=== PATIENT | male | born 1955 | race Caucasian/White ===

== ENCOUNTER 2025-02-08 17:11 | Outpatient (CLI) | payer OTHER, MEDICARE, SELFPAY | END 2025-02-08 17:12 | disposition home or self-care (01) | PROVIDERS: Visit Provider Student in an Organized Health Care Education/Training Program | DX: S29.9XXA Unspecified injury of thorax, initial encounter (principal); V47.0XXA Car driver injured in collision with fixed or stationary object in nontraffic accident, initial encounter; Y92.410 Unspecified street and highway as the place of occurrence of the external cause | CPT/HCPCS: A0425; A0427 ==

== ENCOUNTER 2025-02-08 17:55 | Emergency (ER) | payer OTHER, SELFPAY ==
--- OUTSIDE RECORDS SUMMARY | 2004-03-18 19:00 | XMS_ITS | Continuity of Care Document ---
Author Organization [facility] Address [address] [address] [place] [address] Phone Care Team Providers Care Retail Client Solutions Consultant Name Role Phone Rank Philip WATTS Unavailable Unavailable Advance Directives Directive Yes / No Effective Date File Name No Information Encounters Encounter Description Practice Location Reason(s) For Visit Diagnoses Date Provider Providers Copied on Encounter [facility], [address] [address], [place], [place], [id number], [place] tel:[phone] [facility] No Information Rank MD Palacios. [address], [facility] [address], [place], [place], [id number], [place]. tel:[phone] Family History Family Member Type Diagnosis Age At Onset No Information Payers Payer name Insurance type Covered libertarian ID Yoa oscar(s) [facility] [id number] Social History Type Description Quantity Date Captured Comments Sex Male Smoking Status No Information Chief Complaint And Reason For Visit No Information Reason For Referral Reason For Referral No Information History Of Present Illness Encounter Date Complaint History Of Prese nt Illness No Information Functional Status Date Functional Assessmen t No Information Instructions Date Instruction Additional Infor mation No Information Assessments Type Assessment Date No Information Patient Care Teams Name Effective Dates (start - stop) Status Members No Information
--- OUTSIDE RECORDS SUMMARY | 2014-07-04 06:11 | XMS_ITS | Continuity of Care Document ---
Author Organization PRASANNA Diaz Address [address] [place] [address] Phone Care Team Providers Care Rn First Assistant Name Role Phone RN, RN Unavailable Unavailable Medications Medication Instructions Dosage Effective Dates (start - stop) Status Comments Flomax 0.4 mg 24 hr Cap take 1 capsule (0.4MG) by oral route every day 1/2 hour following the same meal each day 0.4 MG - Active clonazepam 2 mg Tab take 1 tablet (2MG) by ORAL route 3 times every day 1 in the morning 2 at night 2 MG - Active Calcium 500 + D 500 mg (1,250 mg)-200 unit Tab take 1 Tablet by Oral route every day 1 Tablet - Active Procedures Procedure Date RF Lumbar/Sacral Single Level 4 RF Lumbar/Sacral Addtl Level Inj Anes Facet Jt; Lumb/sac-1st Level Se Inj Anes Facet Jt; Lumb/sac-2nd Level Se Inj Anes Facet Jt; Lumb/sac-3rd Level Se Inj Anes Facet Jt; Lumb/sac-1st Level Au Inj Anes Facet Jt; Lumb/sac-2nd Level Au Inj Anes Facet Jt; Lumb/sac-3rd Level Au Inject Hip Arthrography Hip Joint Inject Hip Arthrography Hip Joint RF Lumbar/Sacral Single Level 4 RF Lumbar/Sacral Addtl Level Offic/outpt E&m Estab Mod-hi 2 14 Inj Anes Facet Jt; Lumb/sac-1st Level Md Inj Anes Facet Jt; Lumb/sac-2nd Level Ma Inj Anes Facet Jt; Lumb/sac-3rd Level Md Inj Anes Facet Jt; Lumb/sac-1st Level Inj Anes Facet Jt; Lumb/sac-2nd Level Inj Anes Facet Jt; Lumb/sac-3rd Level Offic/outpt E&m Estab Mod-hi 2 14 RF Lumbar/Sacral Single Level 4 RF Lumbar/Sacral Addtl Level Offic/outpt E&m Estab Mod-hi 2 14 Inj Anes Facet Jt; Lumb/sac-1st Level Ja Inj Anes Facet Jt; Lumb/sac-2nd Level Ja Inj Anes Facet Jt; Lumb/sac-3rd Level Offic/outpt E&m Estab Mod-hi 2 14 Inj Anes Facet Jt; Lumb/sac-1st Level De Inj Anes Facet Jt; Lumb/sac-2nd Level De Inj Anes Facet Jt; Lumb/sac-3rd Level De Offic/outpt E&m Estab Mod-wy 4 13 QA DONE Psychother Ov/op-behv Mod 45-5 12 Psychother Ov/op-behv Mod Psychother Ov/op-behv Mod Inj Not Lytic-epidur; Lumb/sac 12 Fluoroscopic Guidance For Needle Placeme nt - Spine Inj Not Lytic-epidur; Lumb/sac 12 Psych Dx Interview Exam Offic/outpt E&m Estab Mod-hi 2 11 Inj Not Lytic-epidur; Lumb/sac 11 Epidurography Rad S&i Moderate sedation services Inj Not Lytic-epidur; Lumb/sac 11 IV Cons Sed First 30M Epidurography Rad S&i Offic Cons New/estab Mod-hi 60 11 Advance Directives Directive Yes / No Effective Date File Name No Information Encounters Encounter Description Practice Location Reason(s) For Visit Diagnoses Date Provider Providers Copied on Encounter CHARISSA Diaz, [address], [place], [id number], tel:[phone] [facility] No Information 3 4 RN RN. [address] [facility], [address], [place], [address], [place]. tel:[phone] Referring Provider: Johnny Gomez MD, [address] [place], [address]. tel:[phone] CHARISSA Diaz, [address] [facility], [place], [address], [place] tel:[phone] [facility] No Information 4 Ronen Perdomo. [address] , [address], [place], [address], [place]. tel:[phone] Referring Provider: Johnny Gomez MD, [address] [place], [address]. tel:[phone] CHARISSA Diaz, [address], [place], [address], [place] tel:[phone] [facility] No Information 4 Ronen Perdomo. [address] , [address], [place], [address], [place]. tel:[phone] Referring Provider: Johnny Gomez MD, [address] [place], [address]. tel:[phone] CHARISSA Diaz, [address], [place], [place], [address], [place] tel:[phone] [facility] No Information 4 Ronen Perdomo. [address], [address], [place], [place], [address], [place]. tel:[phone] Referring Provider: Johnny Gomez MD, [address] [facility], [place], [address]. tel:[phone] [facility], [address], [place], [place], [address], [place] tel:[phone] [facility] No Information 4 Ronen Perdomo. [address], [place], [place], [address], [place]. tel:[phone] Referring Provider: Johnny Gomez MD, [address] [facility], [place], [address]. tel:[phone] [facility], [address], [place], [place], [address], [place] tel:[phone] [facility] No Information 4 Ronen Perdomo. [address], [place], [place], [address], [place]. tel:[phone] Referring Provider: Johnny Gomez MD, [address] [facility], [place], [address]. tel:[phone] [facility], [address], [place], [place], [address], [place] tel:[phone] [facility] No Information 4 Ronen Perdomo. [address], [address], [place], [place], [address], [place]. tel:[phone] Referring Provider: Johnny Gomez MD, [address] [facility], [place], [address]. tel:[phone] Offic/outpt E&m Estab Mod-hi 2 [facility], [address], [place], [place], [address], [place] tel:[phone] [facility] No Information 8 4 Yousiftariq Chensylwiaer. [address] , [place], [address], [place]. tel:[phone] Referring Provider: Johnny Gomez MD, [address] [place], [address]. tel:[phone] [facility], [address], [place], [place], [address], [place] tel:[phone] [facility] No Information 0 4 Ronen Perdomo. [address], [address], [place], [place], [address], [place]. tel:[phone] Referring Provider: Johnny Gomez MD, [address] [place], [place], [address]. tel:[phone] [facility], [address], [place], [place], [address], [place] tel:[phone] [facility] No Information 4 Ronen Perdomo. [address], [place], [place], [address], [place]. tel:[phone] Referring Provider: Johnny Gomez MD, [address] [place], [address]. tel:[phone] Offic/outpt E&m Estab Mod-hi 2 [facility], [address], [place], [place], [address], [place] tel:[phone] [facility] No Information 4 Yousif Barrazaer. [address], [place], [address], [place]. tel:[phone] Referring Provider: Johnny Gomez MD, [address] [place], [address]. tel:[phone] [facility], [address], [place], [place], [id number], [place] tel:[phone] [facility] No Information 4 Ronen Perdomo. [address], [place], [place], [address], [place]. tel:[phone] Referring Provider: Johnny Gomez MD, [address] [place], [address]. tel:[phone] Offic/outpt E&m Estab Mod-hi 2 [facility], [address], [place], [place], [address], [place] tel:[phone] [facility] No Information 4 Yousif Gustavosylwiaanastasia. [address], [place], [address], [place]. tel:[phone] Referring Provider: Johnny Gomez MD, [address] [place], [address]. tel:[phone] [facility], [address], [place], [address], [place] tel:[phone] [facility] No Information 4 Ronen Perdomo. [address], [place], [place], [address], [place]. tel:[phone] Referring Provider: Johnny Gomez MD, [address] [place], [address]. tel:[phone] Offic/outpt E&m Estab Mod-hi 2 [facility], [address], [place], [place], [address], [place] tel:[phone] [facility] No Information 4 Yousif Vines. [address] [place], [address], [place]. tel:[phone] Referring Provider: Johnny Gomez MD, [address] [place], [facility] [place], [address]. tel:[phone] [facility], [address], [place], [place], [address], [place] tel:[phone] [facility] No Information 3 Ronen Perdomo. [address], [place], [place], [address], [place]. tel:[phone] Referring Provider: Johnny Gomez MD, [address] [place], [place], [address]. tel:[phone] Offic/outpt E&m Estab Mod-hi 4 [facility], [address], [place], [place], [address], [place] tel:[phone] [facility] No Information 3 Yousiftariq Vines. [address] [place], [address], [place]. tel:[phone] Referring Provider: Johnny Gomez MD, [address] [place], [place], [address]. tel:[phone] CHARISSA Diaz, [address], [place], [place], [address], [place] tel:[phone] Viri Diaz [facility] [address] No Information 2 Leonardlyubovmariusz Ronal. [address], [place], [place], [address], [place]. tel:[phone] Referring Provider: Kishore Ball MD, [address] [facility], [place], [address]. tel:[phone] [facility], [address], [place], [place], [address], [place] tel:[phone] [facility] No Information 2 Krystal Villeda. [address], [place], [place], [address], [place]. tel:[phone] Referring Provider: Kishore Ball MD, [address] [place], [address]. tel:[phone] [facility], [address], [place], [place], [address], [place] tel:[phone] [facility] No Information 2 Krystal Villeda. [address], [place], [place], [address], [place]. tel:[phone] Referring Provider: Kishore Ball MD, [address] [place], [address]. tel:[phone] [facility], [address], [place], [place], [address], [place] tel:[phone] [facility] No Information 2 No Information Referring Provider: Kishore Ball MD, [address] [place], [address]. tel:[phone] [facility], [address], [place], [address], [place] tel:[phone] [facility] No Information 2 No Information CHARISSA Diaz, [address], [place], [place], [address], [place] tel:[phone] [facility] [address] No Information 2 Krystal Villeda. [address], [place], [place], [address], [place]. tel:[phone] Referring Provider: Kishore Ball MD, [address] [facility], [place], [address]. tel:[phone] Offic/outpt E&m Estab Mod-hi 2 [facility], [facility], [address], [place], [place], [address], [place] tel:[phone] [facility] No Information 1 Martell Smith. [address] [place] [address] [address], [place], [address], [place]. tel:[phone] Referring Provider: Kishore Ball MD, [address] [place], [address]. tel:[phone] [facility], [address], [place], [place], [address], [place] tel:[phone] [facility] No Information 1 No Information Referring Provider: Kishore Ball MD, [address] [place], [address]. tel:[phone] [facility], [address], [place], [address], [place] tel:[phone] [facility] No Information 1 No Information Offic Cons New/estab Mod-hi 60 [facility], [facility], [address], [place], [place], [address], [place] tel:[phone] [facility] No Information 1 Martell Smith. [address], [place], [address], [place]. tel:[phone] Referring Provider: Kishore Ball MD, [address] [facility], [place], [address]. tel:[phone] Family History Family Member Type Diagnosis Age At Onset No Information Payers Payer name Insurance type Covered constitution party ID Authorcharito moore(s) [facility] [id number] Social History Type Description Quantity Date Captured [...]
--- OUTSIDE RECORDS SUMMARY | 2021-10-29 11:02 | XMS_ITS | Continuity of Care Document ---
Author Organization [facility] Address [address] [place] [address] Phone Care Team Providers Care Federal Air Marshal Name Role Phone Will MD NATHAN, Tu Unavailable Unavailabl e Allergies, Adverse Reactions, Alerts Substance Reaction Status Criticality lactose Active No Information clindamycin Active No Information Medications Medication Instructions Dosage Effective Dates (start - stop) Status Comments Calcium 500 + D 500 mg (1,250 mg)-200 unit tablet - Active Flomax 0.4 mg capsule - Active Procedures Procedure Date OFFICE/OUTPATIENT VISIT, EST Psych Dx Eval PSYCHO TESTING BY PSYCH/PHYS OFFICE CONSULTATION Advance Directives Directive Yes / No Effective Date File Name No Information Encounters Encounter Description Practice Location Reason(s) For Visit Diagnoses Date Provider Providers Copied on Encounter [facility], [address] [place] [address], [id number] , tel:[phone] [facility] No Information 2 Will Tu. [address] [place] [address], [id number], [place]. tel:[phone] OFFICE/OUTPAT IENT VISIT, EST [facility], [address] [place] [address], [id number] , tel:[phone] [facility] low back pain (chief complaint) Degeneration of lumbar or lumbosacral intervertebral discDegeneratio n of thoracic or thoracolumbar intervertebral discChronic hepatitis C without mention of hepatic comaOsteoarthri tis, GeneralizedGene ralized anxiety disorder 3 Will Tu. [address] [place] [address], [id number], [place]. tel:[phone] Referring Provider: Marge Mojica [address], [address]. tel:[phone] Psych Dx Eval [facility], [address] [place] [address], [id number] , [place] tel:[phone] [facility] Other, pain disorder related to psychological factorsGenerali zed anxiety disorderMajor depressive affective disorder, single episode, mild degreeInsomnia due to medical condition classified elsewhere 3 Etelvina Sanket Peg. [address] [place] [address], [id number], [place]. tel:[phone] Referring Provider: Marge Mojica[address], [facility]. tel:[phone] [facility], [address] [place] [address], [id number] , [place] tel:[phone] [facility] No Information 3 Will Tu. [address] [place] [address], [id number], [place]. tel:[phone] OFFICE CONSULTATION [facility], [address] [place] [address], [id number] , [place] tel:[phone] [facility] low back pain (chief complaint) Degeneration of lumbar or lumbosacral intervertebral discPain in joint involving pelvic region and thighDegenerati on of thoracic or thoracolumbar intervertebral discDisplacemen t of thoracic intervertebral disc without myelopathyChron ic hepatitis C without mention of hepatic comaOsteoarthri tis, GeneralizedGene ralized anxiety disorder 3 No Information Referring Provider: Marge Mojica [address], [address]. tel:[phone] Family History Family Member Type Diagnosis Age At Onset No Information Payers Payer name Insurance type Covered alliance party ID Jonathan moore(s) [facility] [id number] Social History Type Description Quantity Date Captured Comments Sex Male Smoking Status No Information Chief Complaint And Reason For Visit No Information Reason For Referral Reason For Referral No Information Plan Of Treatment Date Type Action Status Future Order: Lab Order [facility]YS[facility], URINE, WITH MED REPORT ([id number]), Sent on: Sent History Of Present Illness Encounter Date Complaint History Of Prese nt Illness No Information Functional Status Date Functional Assessmen t No Information Instructions Date Instruction Additional Infor mation Continue current medication Reviewed medications Patient did not brin g medications to office visit today. Continue current medication Reviewed medications Depression Screen Oswestry Score Assessments Type Assessment Date No Information Patient Care Teams Name Effective Dates (start - stop) Status Members No Information
[2025-02-08] VITALS (38 sets, daily range): BP systolic 102–136; BP diastolic 65–98; PULSE 68–79; RESP 8–21; TEMP 36.6; O2SAT 85–96; BMI 25.1
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
[2025-02-08 18:20] LABS: Creatinine, Point-of-Care* 0.8 mg/dl (0.6-1.3)
[2025-02-08 18:37] LABS: Basophils Absolute Auto 0.07 K/uL (0.00-0.30); Eosinophils Absolute Auto 0.11 K/uL (0.00-0.50); Eosinophils Percent Auto 1.5 % (0.0-7.0); Hematocrit 49.7 % (37.0-53.0); Hemoglobin* 16.3 gm/dL (13.5-17.5); Immature Granulocytes Abs Auto 0.03 K/uL (0.00-0.30); Immature Granulocytes Pct Auto 0.4 %; Lymphocytes Absolute Auto 2.05 K/uL (0.90-2.90); Lymphocytes Percent Auto 28.9 % (20-44); Mean Corpuscular HGB Conc 33 gm/dL (32-36); Mean Corpuscular Hemoglobin 31 pg (26-34); Mean Corpuscular Volume 96 fL (80-100); Monocytes Percent Auto 5.4 % (0.0-11.0); Neutrophils Absolute Auto 4.46 K/uL (1.7-7.0); Neutrophils Percent Auto 62.8 % (42.0-72.0); Platelet Count* 215 K/uL (140-440); RDW Coefficient of Variation % 12.4 % (11.5-15.5)
[2025-02-08 18:46] LABS: Slide Review Reflex No
[2025-02-08 18:54] LABS: Chloride* 103 mmol/L (96-114); Potassium* 3.7 mmol/L (3.6-5.1); Sodium* 141 mmol/L (135-149)
[2025-02-08 18:57] LABS: Anion Gap 11 mEq/L (7-15); Blood Urea Nitrogen* 14 mg/dL (7-30); Carbon Dioxide* 27 mmol/L (20-32); Creatinine* 0.8 mg/dL (0.5-1.5); Est. Creatinine Clearance* 67.75; Estimated Glomerular Filt Rate 95 ml/min
[2025-02-08 18:58] LABS: Calcium* 9.4 mg/dL (8.4-10.6); Glucose* 92 mg/dL (60-115); Magnesium* 2.1 mg/dL (1.5-2.6)
[2025-02-08 19:16] LABS: Ethanol* < 0.01 % (0.01-0.03); Troponin I* < 0.01 ng/mL (0.01-0.04)
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
--- OUTSIDE RECORDS SUMMARY | 2025-02-08 19:37 | XMS_ITS | Clinical Summary ---
Author Organization [facility] Address [address] [place] [address] Phone Care Team Providers Care It Consulting Manager Name Role Phone Kishore Whitlock PT Unavailable Unavailable Alex Pablo Unavailable Shay Jeanmariegreer Thomas [facility] Unavailable [phone] Lona Kline MD Primary Care Provi maday Source Comments [employer] is fully rolled out on [employer]. Last update 02/14/09.[employer] Allergies Active Allergy Reactions Criticality Noted Date Comments Clindamycin Other (see comments),Diarrhea,Abdom inal Pain,Headache 08/07/2012 Stomach cramps, diarrhea and headache Medications * This document contains information received from the source organization and may not represent a complete record from that organization. * Be aware that medications may not be up to date as of this document. Always verify current medications with patient. traZODone (DESYREL) 50 mg oral tablet TK SS TO 2 TS PO QHS. USE DIRECTED 1 05/08/20 17 Active Multiple Vitamins-Mineral s (B COMPLEX VITAMINS PLUS) oral TABSIndications: Routine history and physical examination of adult Take 1 tablet by mouth daily. 90 tablet 3 07/24/20 20 Active Additional Information Patient not taking.Reported on 06/03/2023 vitamin d (D-3-5) 5000 unit oral capsuleIndicatio ns:Routine history and physical examination of adult Take 5,000 UNITS by mouth daily. 90 capsule 3 07/24/20 20 Active diazePAM (VALIUM) 5 mg oral TABS Take 5 mg by mouth twice daily. 02/12/20 20 Active tamsulosin (FLOMAX) 0.4 mg oral capsuleIndicatio ns:Benign prostatic hyperplasia with lower urinary tract symptoms Take 1 capsule (0.4 mg) by mouth daily after meal.Take 30 minutes after same meal each day. Do NOT crush or chew. 90 capsule 3 10/23/19 22 Active sildenafil (VIAGRA) 25 mg oral TABSIndications: Erectile dysfunction, unspecified erectile dysfunction type Take 1 tablet (25 mg) by mouth daily as needed for Erectile Dysfunction. 16 tablet 10/23/19 22 Active sennosides (SENOKOT) 8.6 mg oral TABSIndications: Constipation, unspecified constipation type TAKE 1 TABLET(8.6 MG) BY MOUTH TWICE DAILY NEEDED FOR CONSTIPATION 60 tablet 5 09/27/19 23 Active bisacodyl (EQL LAXATIVE) [address] Take 10 mg by mouth daily as needed for Constipation. 2 0 12/31/19 09 009 Discontin ued(Thera yanick blum ) Hospital, Clinic, or Other Facility Administered Medication Ordered Dose Route Frequency Start Date End Date Status methadone (METHADOSE) 10 mg/mL concentrate 40 mg 40 mg oral DAILY 01/04/2025 01/04/2026 A ctive methadone (METHADOSE) 10 mg/mL concentrate 40 mg 40 mg oral DAILY 01/16/2024 01/15/2025 E nded Active Problems Problem Noted Date Diagnosed Date Acute midline thoracic back pain 01/15/2020 Compression fracture of T8 vertebra ([facility]) Fall at home, initial encounter 09/08/2019 Lumbar transverse process fracture ([facility]) Closed fracture of rib of right side 09/08/2019 Dermatitis 06/22/2018 Bulging lumbar disc 06/16/2018 Overview (10/23/2021): Overview: L4-5 Opioid type dependence, continuous ([facility]) 01/2018 Overview (10/23/2021): Overview: Created by Conversion Osteoarthrosis 06/06/2018 Overview (10/23/2021): Overview: Spine Last Assessment & Plan: 61yoM with chronic left knee pain related to degenerative medial meniscus tear. Crepitus appears to be IT band snapping. -Reviewed DJD treatment options including maintaining healthy weight vs rest vs ice vs bracing vs PT vs injections. Pain is tolerable at this time, so patient would like to hold off on repeat injection for now, but he is interested in bracing. 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), without mention of complication 06/06/2018 Overview (10/23/2021): Overview: table saw accident 1996, right 2nd finger, left 2nd and 5th fingers Bulging lumbar disc 05/13/2017 Overview (05/13/2017): Overview: L4-5 Tobacco abuse 05/13/2017 Lumbosacral spondylosis without myelopathy 05/13 Overview (05/13/2017): Overview: Created by Conversion Degeneration of lumbar or lumbosacral interverte bral disc 05/13/2017 Overview (05/13/2017): Overview: Created by Conversion Myofascial pain 12/13/2016 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 Previous genotype 1A. IL28B polymorphism CT. Stage 2 fibrosis in 2010 (and 2007). 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 Patient will need follow up CT in 6-12 months. Pulmonary nodules 07/30/2016 Overview (10/23/2021): Overview: Overview: New pulmonary nodule noted on CT chest 07/2016. Patient will need follow up CT in 6-12 months. New pulmonary nodule noted on CT chest 07/2016. Patient will need follow up CT in 6-12 months. Chemical dependency ([facility]) 12/18/2015 Overview (10/23/2021): Overview: Pt has history of abusing narcotics , heroin, cocaine, methadone) Pt has been quite medication seeking of Benzodiazepines from [facility] psychiatry clinic. Recommend he not receive any BZDP. Psychiatry clinic will not prescribe BZDP. Overview: Started Methadone treatment 03/2016 Started Methadone treatment 03/2016 Second degree burn of hand 06/02/2012 Pain medication agreement 09/16/2011 Dysthymia 07/13/2010 Overview (05/13/2017): Probably Dysthymia Likely Hepatitis also contributes to his physical symptoms of low energy, low appetite, poor concentration Has had numerous medication trials with minimal response of his mood (Wellburin, Amitripytline, desipramine, buspar, zoloft, prozac, neuronitin, vistaril, lithium, paxil, cymbalta, remeron, effexor, trazodone, xanax, klonopin, valium, seroquel, lexapro, celexa) Has had one psych hospitalization, no suicide attempts. See intake 07/13/2010 Chemical dependency ([facility]) 07/13/2010 Overview (05/13/2017): Pt has history of abusing narcotics , heroin, cocaine, methadone) Pt has been quite medication seeking of Benzodiazepines from [facility] psychiatry clinic. Recommend he not receive any BZDP. Psychiatry clinic will not prescribe BZDP. Overview: Started Methadone treatment 03/2016 Screening 07/11/2009 Overview (06/13/2018): Lipids (>20yo, Q5y) Up to Date Lab Results Component Value Date/Time CALCLDL 100 06/23/09 3:59 AM Colonoscopy (>50yo) Normal 01/18---> DUE 01/2019 PSA and NIKI (>50yo or >40yo if AA or FHx): 11/18--> 0.45 Influenza (Q1year >65y) Pt declined Pneumovax (Q5y; >65y or RF: COPD, DM, ESRD, ESLD, asplenia, immunosupp) Pt declined Td booster (Q10y) Up to date--> DUE 04/2019 Update Jun 2018 Encounter for health-related screening 9 Overview (10/23/2021): Overview: Formatting of this note may be different from the original. Lipids (>20yo, Q5y) Up to Date Lab Results Component Value Date/Time CALCLDL 100 06/23/09 3:59 AM Colonoscopy (>50yo) Normal 01/18---> DUE 01/2019 PSA and NIKI (>50yo or >40yo if AA or FHx): 11/18--> 0.45 Influenza (Q1year >65y) Pt declined Pneumovax (Q5y; >65y or RF: COPD, DM, ESRD, ESLD, asplenia, immunosupp) Pt declined Td booster (Q10y) Up to date--> DUE 04/2019 Gallbladder polyp 05/28/2009 Chronic back pain 11/19/2008 Overview (05/13/2017): Overview: Followed at [facility] [employer] database indicates multiple opioid prescribers Anxiety 11/19/2008 Hepatitis C virus infection without hepatic coma Overview (05/13/2017): Eradicated by therapy 2011-. Previous genotype 1A. IL28B polymorphism CT. Stage 2 fibrosis in 2010 (and 2007). Degenerative joint disease Overview (12/19/2008): Spine Assessment & Plan (12/22/2016 10:33 AM CDT): 61yoM with chronic left knee pain related to degenerative medial meniscus tear. Crepitus appears to be IT band snapping. -Reviewed DJD treatment options including maintaining healthy weight vs rest vs ice vs bracing vs PT vs injections. Pain is tolerable at this time, so patient would like to hold off on repeat injection for now, but he is interested in bracing. -Referral to [facility] for medial microsoft dynamics ax consultant brace to wear when up and ambulating -Follow up with PCP for bilateral ankle swelling -Follow up as needed for repeat injection Assessment & Plan (07/14/2016 9:09 AM CDT): 60yoM with acute on chronic left knee pain and medial meniscus tear, posterior horn, and tricompartmental arthritis, with some knee catching. -Discussed maintaining healthy weight vs rest vs ice vs bracing vs PT vs injections vs surgical intervention via arthroscopy or TKA. 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), without mention of complication Overview (12/19/2008): table saw accident 1996, right 2nd finger, left 2nd and 5th fingers Opioid type dependence, continuous (CMS/HHS) Overview (05/13/2017): IV hydromorphone (Dilaudid), none since 2021 Overview: Created by Conversion Resolved Problems Problem Noted Date Diagnosed Date Resolved Date Elevated blood pressure reading 05/13/2017 08/22/2019 Opiate withdrawal (CMS/HHS) 03/10/2014 06/27/2017 Constipation 08/16/2011 08/22/2019 Follow-up examination 03/19/20092008 History of hepatitis C 11/19/200807/11 Prostate enlargement 11/19/2008 009 Health maintenance examination 11/19/2008 12/19/2008 Fracture, rib 07/11/2009 Immunizations Immunization Administration Dates Next Due Hepatitis A Vaccine (HAVRIX) - Adult 19 years an d Older 06/26/2020 Pneumococcal Polysaccharide, 23 Valent Vaccine(Pneumovax 23) 07/24/2020 Tetanus Toxoid, Reduced Diph theroid Toxoid Acellular Pertussis 04/30/2009 Tetanus and Diphtheria Toxoids Adsorbed-Td (TENI VAC) 07/24/2020 Tuberculin (PPD) 03/02/2016 Family History Medical History Relation Name Comments Heart Father Massive [place] at a ge 69. Other Maternal Grandfather arthrit is Diabetes Maternal Grandmother Cancer Breast Mother s/p surgery Diabetes Mother Cancer Breast Sister 2 s/p surgery Diabetes Sister 3 Psychiatry Sister 3 Alzheimer disea se Relation Name Status Comments Brother Alive Father Maternal Grandfather Maternal Grandmother Mother Sister 1 Alive Sister 2 Alive Sister 3 Son Alive 21 years old; n ot much contact. Social History Tobacco Use Types Packs/Day Years Used Date Smoking Tobacco: Every Day Cigarettes Smokeless Tobacco: Never Tobacco Cessation:Ready to Q uit: Yes Comments:5 cigs a day Alcohol Use Standard Drinks/Week Comments No 0 (1 standard drink = 0.6 oz pure alcohol) last drink over 10 years ago; denies ETOH abuse PHQ-2 Answer Date Recorded PHQ-2 Score 0 06/22/2018 Sex and Gender Information Value Date Recorded Sex Assigned at Male 12/22/2023 9:53 AM CDT Legal Sex Male 5:12 PM GRAVEL HAULER Gender Identity Male 12/22/2023 9:53 AM CDT Sexual Orientation Choose not to disclose 2023 9:53 AM CDT Occupation Industry Job Start Date Job End Date unemployed Not on file Not on file Not on file Last Filed Vital Signs Vital Sign Reading Time Taken Comments Blood Pressure 114/82 12/09/2021 7:56 AM CDT Pulse 97 12/09/2021 7:56 AM CDT Temperature 35.8 C (96.5 F) 07/24/2020 1:57 PM GRAVEL HAULER Respiratory Rate 20 08/22/2020 8:36 AM GRAVEL HAULER Oxygen Saturation 92% 12/30/2016 9:18 PM CDT Inhaled Oxygen Concentration - - Weight 90.3 kg (199 lb) 10/23/2021 1:51 PM GRAVEL HAULER Height 177.8 cm (5' 10) 08/03/2017 9:53 AM GRAVEL HAULER Body Mass Index 28.55 08/03/2017 9:53 AM GRAVEL HAULER Plan of Treatment Health Maintenance Due Date Last Done Comments CT Colonography 1953 Dental Oral Exam 1953 Dental Prophylaxis 1953 Dental X-Ray: Bitewings 1953 Depression Management 1955 FIT/Cologuard 1953 Sigmoidoscopy 1953 Periodontal Maintenance 11/25/1967 Imm: Zoster (1 of 2) 11/25/2003 Osteoporosis Screening (Dexa Scan) 2018 Colonoscopy 01/24/2019 01/24/2009 Imm: Pneumonia 50 years and older (2 of 2 - PCV) 07/24/2021 07/24/2020 Lipid Screening 06/27/2022 06/27/2017, 0811/2011, 06/23/2009, Additional history exists Colorectal Cancer Screening 07/25/2022 iFOB/FIT 07/25/2022 07/25/2021, 07/15/2021 Imm: COVID-19 () 05/13/2024 Imm: Flu (#1) 05/13/2024 MEDICATION REFILL PROTOCOL 04/12/202504/12, 09/27/2022, 05/12/2021, Additional history exists Imm: DTaP/Tdap (3 - Td or Tdap) 07/24/2030 07/24/2020, 04/30/2009 Imm: HepA Aged Out 06/26/2020 No longer eligi ble based on patient's age to complete this topic Abdominal Aortic Aneurysm (AAA) Screening Completed 08/01/2020 Lung Cancer Screening Discontinued 11/05/2021 Hepatitis C Screening Completed 12/09/2021 , 10/23/2021, 08/22/2020, Additional history exists Imm: HPV Aged Out No longer eligi ble based on patient's age to complete this topic Imm: Hib Aged Out No longer eligi ble based on patient's age to complete this topic Imm: Meningitis Aged Out No longer el igible based on patient's age to complete this topic Procedures Procedure Name Priority Date/Time Associated Diagnosis Comments USM AM Routine 01/25/2025 12:00 PM CDT USAT AM Routine 01/25/2025 USM AM Routine 12/11/2024 12:00 PM CDT USM AM Routine 11/21/2024 12:00 PM CDT HEPATITIS C ANTIBODY Routine 12/09/2021 10:[address] LUNG SCREENING Routine 11/05/2021 2:36 PM GRAVEL HAULER Personal history of smoking Tobacco abuse ULT ABD AORTA Routine 08/01/2020 11:46 AM GRAVEL HAULER Personal history of smoking PANEL LIPID Routine 06/27/2017 1:30 PM CDT Screening for hypercholesterolemia COLONOSCOPY-DIAG NOSTIC Routine 01/24/2009 11:40 AM CDT Screen for Colon Cancer from Last 3 Months or Most Recently Relevant to Health Maintenance Results * (ABNORMAL) USM AM (01/25/2025 12:00 PM CDT) Only the most recent of3 resultswithin the time period is included. Amphetamine Urine POS(A) <=500 [facility] Comment:Urine Amphetamine pr esent by Mass Spectrometry. Barbiturate Urine NEG <=200 [facility] Benzodiazepine Urine POS(A) <=200 [facility] Comment:Presumptive positive by screen. Result not confirmed. Cocaine Metabolite Urine POS(A) <=300 [facility] Comment:Presumptive positive by screen. Result not confirmed. Fentanyl Urine AM POS(A) <=4 [facility] Comment:Presumptive positive by screen. Result not confirmed. Methadone Metabolite Urine POS(A) <=300 [facility] Opiates Urine POS(A) <=300 [facility] Comment:Presumptive positive by screen. Result not confirmed. Oxycodone Urine NEG <=300 [facility] Creatinine Urine 294 >=20 mg/dL [facility] Urine 01/25/2025 12:0 0 PM CDT 01/25/2025 3:03 PM CDT Junior Brown MD LABORATORY Final Result Performing Organization Address [facility] Co de Phone Number [facility] [address] [address] * USAT AM (01/25/2025) Methadone Metabolite Urine XXX Urine 01/25/2025 Provider Unknown LABORATORY Final Result * (ABNORMAL) HEPATITIS C ANTIBODY (12/09/2021 10:00 AM CDT) Hep C Blessing Reactive (A) Nonreactive [facility] Comment:Performance characte ristics have not been established with this test on patients less than 10 years of age. Blood 12/09/2021 10:0 0 AM CDT 12/09/2021 11:21 AM CDT Junior Brown MD LABORATORY Final Result Performing Organization Address [facility] de Phone Number [facility] [address] [address] * CT LUNG SCREENING (11/05/2021 2:36 PM GRAVEL HAULER) Anatomical Region Laterality Modality Chest Computed Tomogra phy 11/05/2021 2:34 PM GRAVEL HAULER Impressions 11/05/2021 3:02 PM GRAVEL HAULER IMPRESSION: 1.No suspicious pulmonary nodules. 2.Moderate paraseptal and centrilobular emphysematous changes. 3. Moderate coronary artery calcifications. Pulmonary Findings: Category: Lung Rads 2 Recommendation: Follow Up low-dose CT in 1 Year (Incomplete reason if applicable): Extrapulmonary Findings: Category (S Modifier): P Recommendation: Recommend referral to cardiology, if not already involved in patient care. I have personally reviewed the image(s) and initial interpretation, and I agree with the findings as documented by the resident/fellow. Reading Radiologist: Wicho Garcia Reading Resident: Evi Apple 11/05/2021 3:02 PM GRAVEL HAULER CLINICAL INDICATION: Lung cancer screening. COMPARISON: CT of the chest dated 04/15/2009. TECHNIQUE: Low-dose helical CT was acquired without intravenous contrast from lung apices to bases. Evaluation of extrapulmonary tissues is limited from the low dose technique. DOSE: CTDIvol = 2.7 mGy. Total DLP = 130 mGy.cm. FINDINGS: NODULES: Right Lung: Nodule #1: Size: 5 x 3 mm Composition: solid Calcification: none Location: Right upper lobe Image location: series 202 image 93 Nodule #2: Size: 4 x 3 mm Composition: solid Calcification: none Location: Right lower lobe Image location: series 202 image 208 Left Lung: No significant nodules of the left lung. Other lung findings: Moderate paraseptal and centrilobular emphysematous changes. Peripherally base reticular opacities bilaterally. Airway: Normal Pleura: No pleural effusion or pneumothorax Thoracic aorta and great vessels: Normal in diameter Pulmonary arteries: Normal Heart and pericardium: Moderate coronary artery calcifications. Heart size is within normal limits. No pericardial effusion. Lymph nodes: Prominent mediastinal lymph nodes, including a 12 mm pericarinal lymph node. Thoracic spine: Chronic compression fracture deformity of T8. No acute fracture or subluxation. Chest wall: Normal Visualized upper abdomen: Normal Procedure Note Wicho Garcia MD - 11/05/2021 CLINICAL INDICATION: Lung cancer screening. COMPARISON: CT of the chest dated 04/15/2009. TECHNIQUE: Low-dose helical CT was acquired without intravenous contrastfrom lung apices to bases. Evaluation of extrapulmonary tissues is limitedfrom the low dose technique. DOSE: CTDIvol = 2.7 mGy. Total DLP = 130 mGy.cm. FINDINGS: NODULES: Right Lung: Nodule #1: Size: 5 x 3 mm Composition: solid Calcification: none Location: Right upper lobe Image location: series 202 image 93 Nodule #2: Size: 4 x 3 mm Composition: solid Calcification: none Location: Right lower lobe Image location: series 202 image 208 Left Lung: No significant nodules of the left lung. Other lung findings: Moderate paraseptal and centrilobular emphysematouschanges. Peripherally base reticular opacities bilaterally. Airway: Normal Pleura: No pleural effusion or pneumothorax Thoracic aorta and great vessels: Normal in diameter Pulmonary arteries: Normal Heart and pericardium: Moderate coronary artery calcifications. Heart sizeis within normal limits. No pericardial effusion. Lymph nodes: Prominent mediastinal lymph nodes, including a 12 mmpericarinal lymph node. Thoracic spine: Chronic compression fracture deformity of T8. No acutefracture or subluxation. Chest wall: Normal Visualized upper abdomen: Normal IMPRESSION IMPRESSION: 1.No suspicious pulmonary nodules. 2.Moderate paraseptal and centrilobular emphysematous changes. 3. Moderate coronary artery calcifications. Pulmonary Findings: Category: Lung Rads 2 Recommendation: Follow Up low-dose CT in 1 Year (Incomplete reason if applicable): Extrapulmonary Findings: Category (S Modifier): P Recommendation: Recommend referral to cardiology, if not already involvedin patient care. I have personally reviewed the image(s) and initial interpretation, and Iagree with the findings as documented by the resident/fellow. Reading Radiologist: Wicho Garcia Reading Resident: Evi Apple Lona Bowman MD RAD CT BODY Fin al Result * ULT ABD AORTA (08/01/2020 11:46 AM GRAVEL HAULER) Anatomical Region Laterality Modality Abdomen Ultrasound 08/01/2020 11:3 0 AM GRAVEL HAULER Impressions 08/01/2020 11:31 AM GRAVEL HAULER Impression: No aneurysmal dilatation of the abdominal aorta. 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 Reading Radiologist: Jens Hudson Narrative 08/01/2020 11:31 AM GRAVEL HAULER Indication: AAA screening for patient with history of smoking Comparison: Ultrasound, 04/22/2011. Technique: Gordillo scale imaging of the abdominal aorta and the common iliac arteries. Findings: Aorta Proximal diameter: 2.8 cm Mid aorta diameter: 2.1 cm Distal aorta diameter: 2.1 cm Right common iliac artery diameter: 1.07 cm Left common iliac artery diameter: 1.67 cm Procedure Note Jens Hudson DO - 08/01/2020 Indication: AAA screening for patient with history of smoking Comparison: Ultrasound, 04/22/2011. Technique: Gordillo scale imaging of the abdominal aorta and the common iliac arteries. Findings: Aorta Proximal diameter: 2.8 cm Mid aorta diameter: 2.1 cm Distal aorta diameter: 2.1 cm Right common iliac artery diameter: 1.07 cm Left common iliac artery diameter: 1.67 cm IMPRESSION Impression: No aneurysmal dilatation of the abdominal aorta. Borderlineaneurysmal dilatation of the left common iliac artery. Reading Radiologist: Jens Hudson us Lona Bowman MD CRITICAL ACCESS HOSPITALShantell Khan al Result * (ABNORMAL) PANEL LIPID (06/27/2017 1:30 PM CDT) Cholesterol 195 0 - 200 mg/dL [facility] Comment: Borderline High(0-17yrs): 170-199 mg/dL Borderline High(18+ yrs): 200-239 mg/dL High (0-17yrs): >=200 mg/dL High (18+ yrs): >=240 mg/dL Triglyceride 134 <=150 mg/dL [facility] Comment: Borderline (0-9 yrs): 75-99 mg/dL Borderline (10-17 yrs): 90-129 mg/dL Borderline (18+ yrs): 150-199 mg/dL High (0-9 yrs): >=100 mg/dL High (10-17 yrs): >=130 mg/dL High (18+ yrs): >=200 mg/dL HDL 43 40 - 60 mg/dL [facility] Comment:Desirable: >60 mg/dL Lipid Panel Performed at: [facility] Comment: [facility] [address] [place] [id number] Calc LDL 125(H) <=100 mg/dL [facility] Comment: Near Optimal(18+ yrs): 100-129 mg/dL Borderline(0-17 yrs): 110-129 mg/dL Borderline(18+ yrs): 130-159 mg/dL High(0-17 yrs): >=130 mg/dL High (18+ yrs): >=160 mg/dl Calc VLDL 27 [facility] Blood specimen (specimen) 06/27/2017 1:30 PM CDT 06/27/2017 7:17 PM CDT Narrative [facility] - 06/27/2017 7:37 PM CDT Fasting: Yes us Lona Bowman MD LABORATORY Lance jonelle Result - Final [facility] [address] [address] * COLONOSCOPY (01/24/2009 11:40 AM CDT) 01/24/2009 11:4 0 AM CDT Narrative [facility] - 01/24/2009 5:15 PM CDT [facility] Patient Name: Robbie Kim Procedure Date: 01/24/2009 11:40 Admit Type: Outpatient Gender: M Procedure: Colonoscopy Indications: Screening for malignant neoplasm in the colon Patient Profile: This is a male. Providers: Frederic Carroll MD, Jason Matamoros MD (Fellow), Coreen Castro RN Referring MD: Medicines: Fentanyl 100 micrograms IV, Midazolam 3 mg IV Complications: No immediate complications Procedure: - Prior to the procedure, a History and Physical was performed, and patient medications and allergies were reviewed. The patient is competent. The risks and benefits of the procedure and the sedation options and risks were discussed with the patient. All questions were answered and informed consent was obtained. Patient identification and proposed procedure were verified by the physician in the procedure room. Mental Status Examination: alert and oriented. Airway Examination: normal oropharyngeal airway and neck mobility. Respiratory Examination: clear to auscultation. CV Examination: normal. ASA Grade Assessment: II - A patient with mild systemic disease. After reviewing the risks and benefits, the patient was deemed in satisfactory condition to undergo the procedure. The anesthesia plan was to use moderate sedation / analgesia (conscious sedation). Immediately prior to administration of medications, the patient was re-assessed for adequacy to receive sedatives. The heart rate, respiratory rate, oxygen saturations, blood pressure, adequacy of pulmonary ventilation, and response to care were monitored throughout the procedure. The physical status of the patient was re-assessed after the procedure. After obtaining informed consent, the scope was passed under direct vision. Throughout the procedure, the patient's blood pressure, pulse, and oxygen saturations were monitored continuously. The Colonoscope was introduced through the anus and advanced to the the cecum, identified by appendiceal orifice & ileocecal valve. The colonoscopy was performed without difficulty. The patient tolerated the procedure well. The quality of the bowel preparation was good. Findings: The retroflexed view of the anal verge was normal and showed no anal or rectal abnormalities. The colon (entire examined portion) appeared normal. Impression: - The colon is normal. Recommendation: - The patient was observed post-procedure, until all discharge criteria were met. - Repeat colonoscopy in 10 years. Earlier if any change in clinical condition or new signs and symptoms. - Return [place], [id number] Signed Date: 01/24/2009 17:15 Number of Addenda: 0 Note initiated on 01/24/2009 11:42 Jason Matamoros MD, [id number] Procedure Note 01/24/2009 [facility] Patient Name: Robbie Kim Procedure Date: 01/24/2009 11:40 Admit Type: Outpatient Gender: M Procedure: Colonoscopy Indications: Screening for malignant neoplasm in the colon Patient Profile: This is a male. Providers: Frederic Carroll MD, Jason Matamoros MD (Fellow), Coreen Castro RN Referring MD: Medicines: Fentanyl 100 micrograms IV, Midazolam 3 mg IV Complications: No immediate complications Procedure: - Prior to the procedure, a History and Physical was performed, and patient medications and allergies were reviewed. The patient is competent. The risks and benefits of the procedure and the sedation options and risks were discussed with the patient. All questions were answered and informed consent was obtained. Patient identification and proposed procedure were verified by the physician in the procedure room. Mental Status Examination: alert and oriented. Airway Examination: normal oropharyngeal airway and neck mobility. Respiratory Examination: clear to auscultation. CV Examination: normal. ASA Grade Assessment: II - A patient with mild systemic disease. After reviewing the risks and benefits, the patient was deemed in satisfactory condition to undergo the procedure. The anesthesia plan was to use moderate sedation / analgesia (conscious sedation). Immediately prior to administration of medications, the patient was re-assessed for adequacy to receive sedatives. The heart rate, respiratory rate, oxygen saturations, blood pressure, adequacy of pulmonary ventilation, and response to care were monitored throughout the procedure. The physical status of the patient was re-assessed after the procedure. After obtaining informed consent, the scope was passed under direct vision. Throughout the procedure, the patient's blood pressure, pulse, and oxygen saturations were monitored continuously. The Colonoscope was introduced through the anus and advanced to the the cecum, identified by appendiceal orifice & ileocecal valve. The colonoscopy was performed without difficulty. The patient tolerated the procedure well. The quality of the bowel preparation was good. Findings: The retroflexed view of the anal verge was normal and showed no anal or rectal abnormalities. The colon (entire examined portion) appeared normal. Impression: - The colon is normal. Recommendation: - The patient was observed post-procedure, until all discharge criteria were met. - Repeat colonoscopy in 10 years. Earlier if any change in clinical condition or new signs and symptoms. - Return [place], [id number] Signed Date: 01/24/2009 17:15 Number of Addenda: 0 Note initiated on 01/24/2009 11:42 Jason Matamoros MD, [id number] Philip Polanco MD GI LAB Final Resu lt [facility] GI from Last 3 Months or Most Recently Relevant to Health Maintenance Insurance AETNA AETNA * Guarantor: [employer] Account Type Relation to Patient Date of Phone Billing Address Corporate Other [address] [place] [id number] * Guarantor: [employer] Account Type Relation to Patient Date of Phone Billing Address Corporate Other [facility] [address] [place] [id number] Advance Directives For more information, please contact: [phone] * Full Code (Latest Code Status on File) Date Activated Date Inactivated Comments 06/22/2009 6:42 PM 06/23/2009 4:35 PM Question Answer Comments Discussed Code Status With Whom? Patient Care Teams It Consulting Manager Relationship Specialty Start Date End Date Alex Pablo [address] [place] [address] PCP - Psychiatry Outside Provider 06/27/17 Lona Kline MD [address] [facility] [address] [place] [address] PCP - General Family Medicine 08/25/23 Kishore Whitlock, PT [address] [place] [address] Physical Therapist 10/28/14 Daphne Day, [facility] [address] [place] [address] Counselor - Primary 10/25/22
--- OUTSIDE RECORDS SUMMARY | 2025-02-08 19:37 | XMS_ITS | Clinical Summary ---
Author Organization [facility] Address [address] [place] [address] Care Team Providers Care Golf Cart Attendant Name Role Phone Rosie Noonan Primary Care Provider [phone] Allergies Active Allergy Reactions Criticality Noted Date Comments Clindamycin GI Disturbance 01/18/2014 Stomach pains Medications * This document contains information received from the source organization and may not represent a complete record from that organization. diazepam (VALIUM) 2 MG tablet Take 5 mg by mouth 2 times daily Each dose = 2.5 x 2 mg tablets Active cholecalciferol 400 UNITS TABSIndications: Heroin dependence (H) Take 400 Units by mouth daily 30 each 0 6 Active calcium carb 1250 mg, 500 mg [place],/vitamin D 200 units (OSCAL WITH D) 500-200 MG-UNIT per tabletIndication s:Vitamin D deficiency Take 1 tablet by mouth 2 times daily (with meals) 90 tablet 12 6 Active multivitamin, therapeutic with minerals (MULTI-VITAMIN) TABS tabletIndication s:Health care maintenance Take 1 tablet by mouth daily 100 tablet 3 7 Active hydrocortisone (CORTAID) 1 % creamIndications :Ingrown hair Apply sparingly to affected area three times daily for 14 days. 30 g 7 Active tamsulosin (FLOMAX) 0.4 MG capsuleIndicatio ns:Benign non-nodular prostatic hyperplasia without lower urinary tract symptoms Take 2 capsules (0.8 mg) by mouth daily 30 capsule 3 7 Active albuterol (PROAIR HFA/PROVENTIL HFA/VENTOLIN HFA) 108 (90 BASE) MCG/ACT InhalerIndicatio ns:SOB (shortness of breath) Inhale 2 puffs into the lungs every 6 hours as needed for shortness of breath / dyspnea or wheezing 1 Inhaler 3 7 Active varenicline (CHANTIX RUSS) 0.5 MG X 11 & 1 MG X 42 tabletIndication s:Encounter for smoking cessation counseling Take 0.5 mg tab daily for 3 days, THEN 0.5 mg tab twice daily for 4 days, THEN 1 mg twice daily. 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 -Referral to [facility] for medial medical diagnostic radiographer brace to wear when up and ambulating -Follow up with PCP for bilateral ankle swelling -Follow up as needed for repeat injection Myofascial pain 12/13/2016 Benign non-nodular prostatic hyperplasia without lower urinary tract symptoms 12/01/2016 Hepatitis C virus infection without hepatic coma 12/01/2016 Overview (06/06/2018): Overview: Eradicated by therapy 2011-. Previous genotype 1A. IL28B polymorphism CT. Stage 2 fibrosis in 2010 (and 2007). 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 Patient will need follow up CT in 6-12 months. New pulmonary nodule noted on CT chest 07/2016. Patient will need follow up CT in 6-12 months. Chemical dependency 12/18/2015 Overview (06/06/2018): Overview: Pt has history of abusing narcotics , heroin, cocaine, methadone) Pt has been quite medication seeking of Benzodiazepines from [facility] psychiatry clinic. Recommend he not receive any BZDP. Psychiatry clinic will not prescribe BZDP. Overview: Started Methadone treatment 03/2016 Started Methadone treatment 03/2016 Opiate withdrawal 03/10/2014 Pain medication agreement 09/16/2011 Dysthymia 07/13/2010 Overview (06/06/2018): Overview: Probably Dysthymia Likely Hepatitis also contributes to his physical symptoms of low energy, low appetite, poor concentration Has had numerous medication trials with minimal response of his mood (Wellburin, Amitripytline, desipramine, buspar, zoloft, prozac, neuronitin, vistaril, lithium, paxil, cymbalta, remeron, effexor, trazodone, xanax, klonopin, valium, seroquel, lexapro, celexa) Has had one psych hospitalization, no suicide attempts. See intake 07/13/2010 Encounter for medication refill 01/30/2010 Overview (06/06/2018): Overview: On [place] Restricted Recipient Program per insurance related to duplicate services,misrepresented symptoms and inappropriate use of ER. Restricted to [place] Screening 07/11/2009 Overview (06/06/2018): Overview: Formatting of this note may be [...] booster (Q10y) Up to date--> DUE 04/2019 Chronic back pain 11/19/2008 Overview (06/06/2018): Overview: Overview: Followed at [facility] database indicates multiple opioid prescribers Immunizations Immunization Administration Dates Next Due [place] Tuberculin Skin Test 03/02/2016 TDAP Vaccine (Boostrix) 04/30/2009 Family History Medical History Relation Comments No Known Problems Brother 1 Coronary Artery Disease Father Diabetes Maternal Grandmother Breast Cancer Mother Diabetes Mother Diabetes Sister 1 Breast Cancer Sister 2 Diabetes Sister 3 No Known Problems Son 1 Colon Cancer No family hx of Hypertension No family hx of Other Cancer No family hx of Prostate Cancer No family hx of Relation Status Comments Brother 1 Brother 2 Alive Father Maternal Grandmother Mother Sister 1 Sister 2 Sister 3 Sister 4 Son 1 Son 2 Alive Social History Tobacco Use Types Packs/Day Years Used Date Smoking Tobacco: Some Days Cigarettes Smokeless Tobacco: Never Tobacco Cessation:Ready to Q uit: Yes Alcohol Use Standard Drinks/Week Comments No 0 (1 standard drink = 0.6 oz pur e alcohol) seldom PHQ-2 Answer Date Recorded PHQ-2 Score 0 10/25/2018 Adolescent Education Answer Date Record ed Getting School Help Needed Not on file 06/19 Sex and Gender Information Value Date Recorded Sex Assigned at Not on file Legal Sex Male 3:45 AM BLOOD TESTER Gender Identity Not on file Sexual Orientation Not on file Last Filed Vital Signs Vital Sign Reading Time Taken Comments Blood Pressure 121/86 10/25/2018 3:46 PM BLOOD TESTER Pulse 91 10/25/2018 3:46 PM BLOOD TESTER Temperature 37 C (98.6 F) 10/25/2018 3:46 PM BLOOD TESTER Respiratory Rate 14 02/22/2018 1:51 PM CDT Oxygen Saturation 95% 10/25/2018 3:46 PM BLOOD TESTER Inhaled Oxygen Concentration - - Weight 81.6 kg (180 lb) 07/19/2019 11:00 AM BLOOD TESTER Height 177.8 cm (5' 10) 07/19/2019 11:00 AM BLOOD TESTER Body Mass Index 25.83 07/19/2019 11:00 AM BLOOD TESTER Plan of Treatment Not on file Insurance MEDICAID [place] Advance Directives For more information, please contact: [phone] * Full Code (Latest Code Status on File) Date Activated Date Inactivated Comments 02/25/2016 7:23 PM 02/27/2016 8:03 PM * Full Code Date Activated Date Inactivated Comments 12/18/2015 8:56 PM 12/22/2015 8:38 PM * Full Code Date Activated Date Inactivated Comments 03/10/2014 4:35 PM 03/12/2014 2:34 PM Care Teams Golf Cart Attendant Relationship Specialty Start Date End Date Rosie Noonan DO [address] [facility] [place] [address] PCP - General Family Medicine 10/16/20
--- OUTSIDE RECORDS SUMMARY | 2025-02-08 19:37 | XMS_ITS | Encounter Summary ---
Author Organization [facility] Address [address] [place] [address] Care Team Providers Care Workforce Development Vice President Name Role Phone Vandana Munoz MD Primary Care Provider U Elisa Laguerre DO Primary Care Provider Unavail able Nery Bernstein DO Primary Care Provider Gunner Rivera MD Primary Care Provider Gunner Rivera MD Unavailable [phone] Rosie Noonan DO Primary Care Provider Rosie Noonan DO Unavailable [phone] Nery Bernstein DO Unavailable [phone] Rosie Noonan DO Unavailable [phone] Encounter Details Date Type Department Care Team (Late st Contact Info) Description 06/27/2017 Records - [facility] CONVERSION Scan, Non-Provider Social History Tobacco Use Types Packs/Day Years Used Date Smoking Tobacco: Every Day Cigarettes Smokeless Tobacco: Never Alcohol Use Standard Drinks/Week Comments No 0 (1 standard drink = 0.6 oz pur e alcohol) seldom Sex and Gender Information Value Date Recorded Sex Assigned at Not on file Legal Sex Male 3:45 AM CHARGE LPN Gender Identity Not on file Sexual Orientation Not on file documented as of this encounter Plan of Treatment Not on file documented as of this encounter Visit Diagnoses Not on filedocumented in this encounter Care Teams Workforce Development Vice President Relationship Specialty Start Date End Date Vandana Munoz MD PCP - General Student in organized health care education/training program 03/11/16 05/02/18 Elisa Benites DO PCP - General Student in organized health care education/training program 05/03/18 10/24/18 Nery Bernstein DO [address], [address] [place] [address] PCP - General Student in organized health care education/training program 10/25/18 12/13/18 Gunner Rivera MD [address], [address] [place] [address] PCP - General Family Practice 12/14/18 10/15/20 Rosie Noonan DO [address] [address] PCP - General Family Medicine 10/16/20 Gunner Rivera MD [place] [id number] [address] [address] Assigned PCP 01/31/20 10/18/20 Rosie Noonan DO [address] [place] [address] Assigned PCP 11/02/20 12/20/20 Nery Bernstein DO [address] [address] Assigned PCP 10/19/20 11/01/20 Rosie Noonan DO [address] [place] [address] Assigned PCP 02/15/21 10/31/21 documented as of this encounter
--- OUTSIDE RECORDS SUMMARY | 2025-02-08 19:37 | XMS_ITS | Referral Summary ---
Author Organization [facility] Address [address] [place] [address] Phone Care Team Providers Care Gravel Machine Operator Name Role Phone Kishore Whitlock PT Unavailable Unavailable Alex Pablo Unavailable Shay Jeanmariegreer Thomas [facility] [place]NOTE 2] Unavailable [phone] Lona Kline MD Primary Care Provi maday Source Comments [employer] is fully rolled out on [employer]. Last update 02/14/09.[employer] Allergies Active Allergy Reactions Criticality Noted Date [...] pain 01/15/2020 Compression fracture of T8 vertebra ([facility]) Fall at home, initial encounter 09/08/2019 Lumbar transverse process fracture ([facility]) Closed fracture of rib of right side 09/08/2019 Dermatitis 06/22/2018 Bulging lumbar disc 06/16/2018 Overview (10/23/2021): Overview: L4-5 Opioid type dependence, continuous ([facility]) 01/2018 Overview (10/23/2021): Overview: Created by Conversion [...] he is interested in bracing. -[facility]erral to [facility] for medial furniture fabricator brace to wear when up and ambulating [...] up CT in 6-12 months. Chemical dependency ([facility]) 12/18/2015 Overview (10/23/2021): Overview: Pt has history of abusing narcotics , heroin, cocaine, methadone) Pt has been quite medication [facility] Recommend he not receive [...] suicide attempts. See intake 07/13/2010 Chemical dependency ([facility]) 07/13/2010 Overview (05/13/2017): Pt has history of abusing narcotics , heroin, cocaine, methadone) Pt has been quite medication seeking of [facility]zod[facility]ines [facility]. Recommend he not receive [...] pain 11/19/2008 Overview (05/13/2017): Overview: [facility] database indicates multiple opioid prescribers Anxiety 11/19/2008 [...] in bracing. -Referral to [facility] for medial furniture fabricator brace to wear when up and ambulating [...] Adsorbed-Td (TENI VAC) 07/24/2020 Tuberculin (PPD) 03/02/2016 Social History Tobacco Use Types Packs/Day Years [...] AM CDT Legal Sex Male 5:12 PM NETWORK DESIGNER Gender Identity Male 12/22/2023 9:53 AM CDT [...] 35.8 C (96.5 F) 07/24/2020 1:57 PM NETWORK DESIGNER Respiratory Rate 20 08/22/2020 8:36 AM NETWORK DESIGNER Oxygen Saturation 92% 12/30/2016 9:18 PM CDT Inhaled Oxygen Concentration - - Weight 90.3 kg (199 lb) 10/23/2021 1:51 PM NETWORK DESIGNER Height 177.8 cm (5' 10) 08/03/2017 9:53 AM NETWORK DESIGNER Body Mass Index 28.55 08/03/2017 9:53 AM NETWORK DESIGNER Plan of Treatment Not on file Procedures Procedure Name Priority Date/Time Associated Diagnosis Comments USM AM Routine 01/25/2025 12:00 PM CDT USAT AM Routine 01/25/2025 USM AM Routine 12/11/2024 12:00 PM CDT USM AM Routine 11/21/2024 12:00 PM CDT HEPATITIS C ANTIBODY Routine 12/09/2021 10:[address] LUNG SCREENING Routine 11/05/2021 2:36 PM NETWORK DESIGNER Personal history of smoking Tobacco abuse ULT ABD AORTA Routine 08/01/2020 11:46 AM NETWORK DESIGNER Personal history of smoking PANEL LIPID Routine 06/27/2017 1:30 PM CDT Screening for hypercholesterolemia COLONOSCOPY-DIAG NOSTIC Routine 01/24/2009 11:40 AM CDT Screen for Colon Cancer from Last 3 Months or Most Recently Relevant to Health Maintenance Results * (ABNORMAL) USM AM (01/25/2025 12:00 PM CDT) Only the most recent of3 resultswithin the time period is included. Amphetamine Urine POS(A) <=500 [facility] Comment:Urine Amphetamine pr esent by Mass Spectrometry. Barbiturate Urine NEG <=200 [facility] Benzodiazepine Urine POS(A) <=200 [facility] Comment:Presumptive positive by screen. Result not confirmed. Cocaine Metabolite Urine POS(A) <=300 [facility] Comment:Presumptive positive by screen. Result not confirmed. Fentanyl Urine AM POS(A) <=4 [facility] Comment:Presumptive positive by screen. Result not confirmed. Methadone Metabolite Urine POS(A) <=300 [facility] Opiates Urine POS(A) <=300 [facility] Comment:Presumptive positive by screen. Result not confirmed. Oxycodone Urine NEG <=300 [facility] Creatinine Urine 294 >=20 mg/dL [facility] Urine 01/25/2025 12:0 0 PM CDT 01/25/2025 3:03 PM CDT Junior Brown MD LABORATORY Final Result Performing Organization Address City/[facility]/ZIP Co de Phone Number [facility] [address] [address] * USAT AM (01/25/2025) Methadone Metabolite Urine XXX Urine 01/25/2025 us Provider Unknown LABORATORY Final Result * (ABNORMAL) HEPATITIS C ANTIBODY (12/09/2021 10:00 AM CDT) Hep C Blessing Reactive (A) Nonreactive [facility] Comment:Performance characte ristics have not been established with this test on patients less than 10 years of age. Blood 12/09/2021 10:0 0 AM CDT 12/09/2021 11:21 AM CDT Junior Brown MD LABORATORY Final Result Performing Organization Address [facility] Co de Phone Number [address] [address] * CT LUNG SCREENING (11/05/2021 2:36 PM NETWORK DESIGNER) Anatomical Region Laterality Modality Chest Computed Tomogra phy 11/05/2021 2:34 PM NETWORK DESIGNER Impressions 11/05/2021 3:02 PM NETWORK DESIGNER IMPRESSION: 1.No suspicious pulmonary nodules. 2.Moderate paraseptal [...] Radiologist: Wicho Garcia [place] Resident: Evi Apple Narrative 11/05/2021 3:02 PM NETWORK DESIGNER CLINICAL INDICATION: Lung cancer screening. COMPARISON: CT [...] Radiologist: Wicho Garcia [place] Resident: Evi Apple us Lona Bowman MD RAD CT BODY Fin al Result * ULT ABD AORTA (08/01/2020 11:46 AM NETWORK DESIGNER) Anatomical Region Laterality Modality Abdomen Ultrasound 08/01/2020 11:3 0 AM NETWORK DESIGNER Impressions 08/01/2020 11:31 AM NETWORK DESIGNER Impression: No aneurysmal dilatation of the abdominal aorta. 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 [place] Radiologist: Jens Hudson 08/01/2020 11:31 AM NETWORK DESIGNER Indication: AAA screening for patient with history [...] common iliac artery. [place] Radiologist: Jens Hudson Lona Bowman MD RAD Shantell Khan mi Result * (ABNORMAL) PANEL LIPID (06/27/2017 1:30 PM CDT) Cholesterol 195 0 - 200 mg/dL [facility] Comment: Borderline High(0-17yrs): 170-199 mg/dL Borderline High(18+ yrs): 200-239 mg/dL High (0-17yrs): >=200 mg/dL High (18+ yrs): >=240 mg/dL Triglyceride 134 <=150 mg/dL [facility] Comment: Borderline (0-9 yrs): 75-99 mg/dL Borderline (10-17 yrs): 90-129 mg/dL Borderline (18+ yrs): 150-199 mg/dL High (0-9 yrs): >=100 mg/dL High (10-17 yrs): >=130 mg/dL High (18+ yrs): >=200 mg/dL HDL 43 40 - 60 mg/dL [facility] Comment:Desirable: >60 mg/dL Lipid Panel Performed at: [facility] Comment: [facility] [address] [place] [address] Calc LDL 125(H) <=100 mg/dL [facility] Comment: Near Optimal(18+ yrs): 100-129 mg/dL Borderline(0-17 yrs): 110-129 mg/dL Borderline(18+ yrs): 130-159 mg/dL High(0-17 yrs): >=130 mg/dL High (18+ yrs): >=160 mg/dl Calc VLDL 27 [facility] Blood specimen (specimen) 06/27/2017 1:30 PM CDT 06/27/2017 7:17 PM CDT Narrative [facility] - 06/27/2017 7:37 PM CDT Fasting: Yes Lona Bowman MD LABORATORY Lance jonelle Result - Final [facility] [address] [address] * COLONOSCOPY (01/24/2009 11:40 AM CDT) 01/24/2009 11:4 0 AM CDT Narrative [facility] - 01/24/2009 5:15 PM CDT [facility] Patient Name: Robbie Kim Procedure [...] Return [place], [id number] Signed Date: 01/24/2009 17:15 Number of Addenda: 0 Note initiated on 01/24/2009 11:42 Jason Matamoros MD, [id number] Procedure Note 01/24/2009 [facility] Patient Name: Robbie Kim Procedure [...] Return [place], [id number] Signed Date: 01/24/2009 17:15 Number of Addenda: 0 Note initiated on 01/24/2009 11:42 Jason Matamoros MD, [id number] us Philip Polanco MD GI LAB Final Resu lt [facility] from Last 3 Months or Most Recently Relevant to Health Maintenance Insurance AETNA AETNA * Guarantor: [employer] Account Type Relation to Patient Date of Phone Billing Address Corporate Other [address] [facility] [address] [place] [address] * Guarantor: [employer] Account Type Relation to Patient Date of Phone Billing Address Corporate Other [address] [facility] [address] [address] [place] [id number] Advance Directives For more information, please contact: [phone] * Full Code (Latest Code Status on File) Date Activated Date Inactivated Comments 06/22/2009 6:42 PM 06/23/2009 4:35 PM Question Answer Comments Discussed Code Status With Whom? Patient Care Teams Gravel Machine Operator Relationship Specialty Start Date End Date Alex Pablo [address] [place] [address] PCP - Psychiatry Outside Provider 06/27/17 Lona Kline MD [address] [facility] [address] [place], [place] [id number] PCP - General Family Medicine 08/25/23 Kishore Whitlock, PT [address] [place] [address] Physical Therapist 10/28/14 Daphne Day, LADC [address] [place], [place] [id number] Counselor - Primary 10/25/22
--- OUTSIDE RECORDS SUMMARY | 2025-02-08 19:37 | XMS_ITS | Encounter Summary ---
Author Organization [place] Address [address] [place] [address] Care Team Providers Care Driving Instructor Name Role Phone Clinic - [facility] Primary Car e Provider Delfino Rivero MD Primary Care Provider + [phone] Clinic - [facility] Primary Car e Provider Delfino Rivero MD Primary Care Provider [phone] Vandana Munoz MD Primary Care Provider U Elisa Laguerre DO Primary Care Provider Unavail able Nery Bernstein DO Primary Care Provider Gunner Rivera MD Primary Care Provider Gunner Rivera MD Unavailable [phone] Rosie Noonan DO Primary Care Provider [phone] Rosie Noonan DO Unavailable [phone] Nery Bernstein DO Unavailable [phone] Rosie Noonan DO Unavailable [phone] Reason for Visit * Reason Onset Date Comments MH/CD Inpatient 03/10/2014 Encounter Details Date Type Department Care Team ([facility] st Contact Info) Description 03/10/2014 Telephone [facility] Behavioral Health Intake [address] [place] [id number] Generic, Behavioral Intake, MH/CD Inpatient Social History Tobacco Use Types Packs/Day Years Used Date Smoking Tobacco: Every Day Cigarettes Alcohol Use Standard Drinks/Week Comments No 0 (1 standard drink = 0.6 oz pur e alcohol) PHQ-2 Answer Date Recorded PHQ-2 Score 0 10/25/2018 Adolescent Education Answer Date Record ed Getting School Help Needed Not on file 06/19 Sex and Gender Information Value Date Recorded Sex Assigned at Not on file 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 Dr. Nunes provides clinical. B: Patient has been using up to about 40 mg oral dilaudid daily for months. 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 Patient was initially getting Dilaudid through primary for chronic hip and back pain. Patient will use Percocet on occasion. Patient is prescribed valium 5 mg twice daily and is aware he may not receive it when admitted. Patient denies use of there drugs and denies acute mental health symptoms. Patient has tried to titrate his does down with is PCP, but hasbecome sick and ends up turning to the streets and continues his abuse. A: Patient has a degenerative disk disease in his back and arthritis in right hip. Patient had surgery scheduled, but postponed to get his abuse under control. Patient went through interferon treatment for hepatitis C in the past. Patient reports he has anxiety which he feels the valium helps. Patient denies other mental health symptoms and does not take mental health medications. Patient has been medically assessed and cleared for admission. Patient is cooperative and voluntary. R: Staffed with Dr. Cee who accepts care. Admit to 3a detox. documented in this encounter Plan of Treatment Not on file documented as of this encounter Visit Diagnoses Not on filedocumented in this encounter Care Teams Driving Instructor Relationship Specialty Start Date End Date Clinic - [facility] [address] [place] [address] PCP - General 03/10/14 07/24/14 Delfino Rivero MD [facility] [address] [place] [address] PCP - General 07/25/14 09/30/14 [facility] [address] [place] [address] PCP - General 10/01/14 04/22/15 Delfino Rivero MD [facility] [address] [place] [address] PCP - General 04/23/15 03/10/16 Vandana Munoz MD [facility] [address] [place] [address] PCP - General Student in organized health care education/training program 03/11/16 05/02/18 Elisa Benites DO [facility] [address] [place] [address] PCP - General Student in organized health care education/training program 05/03/18 10/24/18 Nery Bernstein DO [address] [address] PCP - General Student in organized health care education/training program 10/25/18 12/13/18 Gunner Rivera MD [address] [address] PCP - General Family Practice 12/14/18 10/15/20 Rosie Noonan DO [address] [address] PCP - General Family Medicine 10/16/20 Gunner Rivera MD [address] [place] [address] Assigned PCP 01/31/20 10/18/20 Rosie Noonan DO [address] [address] Assigned PCP 11/02/20 12/20/20 Nery Bernstein DO [facility] [address] [place] [address] Assigned PCP 10/19/20 11/01/20 Rosie Noonan DO [address] [address] Assigned PCP 02/15/21 10/31/21 documented as of this encounter
--- OUTSIDE RECORDS SUMMARY | 2025-02-08 19:38 | XMS_ITS | Encounter Summary ---
Author Organization [place] Address [address] [place] [address] Care Team Providers Care Wind Turbine Installer Name Role Phone Elisa Benites DO Primary Care Provider Unavail able Nery Bernstein DO Primary Care Provider Gunner Rivera MD Primary Care Provider Gunner Rivera MD Unavailable [phone] Rosie Noonan DO Primary Care Provider Rosie Noonan DO Unavailable [phone] Nery Bernstein DO Unavailable [phone] Rosie Noonan DO Unavailable [phone] Encounter Details Date Type Department Care Team (Late st Contact Info) Description 08/21/2018 Records - [facility] CONVERSION Scan, Non-Provider Social History Tobacco Use Types Packs/Day Years Used Date Smoking Tobacco: Every Day Cigarettes Smokeless Tobacco: Never Alcohol Use Standard Drinks/Week Comments No 0 (1 standard drink = 0.6 oz pur e alcohol) seldom Sex and Gender Information Value Date Recorded Sex Assigned at Not on file 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 Gender Identity Not on file Sexual Orientation Not on file documented as of this encounter Plan of Treatment Not on file documented as of this encounter Visit Diagnoses Not on filedocumented in this encounter Care Teams Wind Turbine Installer Relationship Specialty Start Date End Date Elisa Benites DO PCP - General Student in organized health care education/training program 05/03/18 10/24/18 Nery Bernstein DO [address], [address] [place] [address] PCP - General Student in organized health care education/training program 10/25/18 12/13/18 Gunner Rivera MD [address], [address] [address] PCP - General Family Practice 12/14/18 10/15/20 Rosie Noonan DO [address] [address] PCP - General Family Medicine 10/16/20 Gunner Rivera MD [address] [address] Assigned PCP 01/31/20 10/18/20 Rosie Noonan DO [address] [address] Assigned PCP 11/02/20 12/20/20 Nery Bernstein DO [facility] [address] [place] [address] Assigned PCP 10/19/20 11/01/20 Rosie Noonan DO [address] [place] [address] Assigned PCP 02/15/21 10/31/21 documented as of this encounter
--- OUTSIDE RECORDS SUMMARY | 2025-02-08 19:38 | XMS_ITS | Encounter Summary ---
Author Organization [place] Address [address] [place] [address] Care Team Providers Care Senior Business Analyst Name Role Phone Vandana Munoz MD Primary Care Provider U Elisa Laguerre DO Primary Care Provider Unavail able Nery Bernstein DO Primary Care Provider Gunner Rivera MD Primary Care Provider Gunner Rivera MD Unavailable [phone] Rosie Noonan DO Primary Care Provider Rosie Noonan DO Unavailable [phone] Nery Bernstein DO Unavailable [phone] Rosie Noonan DO Unavailable [phone] Encounter Details Date Type Department Care Team (Late st Contact Info) Description 08/22/2017 Records - [facility] CONVERSION Scan, Non-Provider Social History Tobacco Use Types Packs/Day Years Used Date Smoking Tobacco: Every Day Cigarettes Smokeless Tobacco: Never Alcohol Use Standard Drinks/Week Comments No 0 (1 standard drink = 0.6 oz pur e alcohol) seldom Sex and Gender Information Value Date Recorded Sex Assigned at Not on file 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 Gender Identity Not on file Sexual Orientation Not on file documented as of this encounter Plan of Treatment Not on file documented as of this encounter Visit Diagnoses Not on filedocumented in this encounter Care Teams Senior Business Analyst Relationship Specialty Start Date End Date Vandana Munoz MD PCP - General Student in organized health care education/training program 03/11/16 05/02/18 Elisa Benites DO PCP - General Student in organized health care education/training program 05/03/18 10/24/18 Nery Bernstein DO [address], [address] [place] [address] PCP - General Student in organized health care education/training program 10/25/18 12/13/18 Gunner Rivera MD [address], [address] [place] [address] PCP - General Family Practice 12/14/18 10/15/20 Rosie Noonan DO [address] [address] PCP - General Family Medicine 10/16/20 Gunner Rivera MD [place] [id number] [address] [address] Assigned PCP 01/31/20 10/18/20 Rosie Noonan DO [address] [place] [address] Assigned PCP 11/02/20 12/20/20 Nery Bernstein DO [address] [address] Assigned PCP 10/19/20 11/01/20 Rosie Noonan DO [address] [place] [address] Assigned PCP 02/15/21 10/31/21 documented as of this encounter
--- OUTSIDE RECORDS SUMMARY | 2025-02-08 19:38 | XMS_ITS | Clinical Summary ---
Author Organization [employer] [facility] Address [address] [place] [address] Care Team Providers Care Director Check Name Role Phone Kassandra Worthy MD Primary Care Provider Allergies Active Allergy Reactions Criticality Noted Date Comments Clindamycin Diarrhea,GI Upset,Headache 08/08/20 12 Medications TAMSULOSIN HCL (TAMSULOSIN ORAL) Take 0.4 mg by mouth once daily. Active diazePAM (VALIUM) 5 mg tablet Take 7.5 mg by mouth once daily. Active acetaminophen (TYLENOL EXTRA STRGTH) 500 mg tabletIndicatio ns:Closed fracture of transverse process of lumbar vertebra, initial encounter (HC),Closed fracture of one rib of right side, initial encounter,Compr ession fracture of body of thoracic vertebra (HC) Take 1 tablet by mouth. Max acetaminophen dose: 4000mg in 24 hrs. 0 9 Active sennosides (SENNA) 8.6 mg tabletIndicatio ns:Closed fracture of transverse process of lumbar vertebra, initial encounter (HC),Closed fracture of one rib of right side, initial encounter,Compr ession fracture of body of thoracic vertebra (HC) Take 1-2 tablets by mouth 2 times daily if needed. 40 tablet 09/09/2019 5:47 PM COUNTY JUDGE 9 Active cholecalciferol , Vitamin D3, (VITAMIN D-3) 2,000 unit tablet Take 1 tablet by mouth once daily. 0 0 Active naproxen (NAPROSYN) 500 mg tabletIndicatio ns:Gout, unspecified cause, unspecified chronicity, unspecified site Take 1 Tablet (500 mg) by mouth every 12 hours if needed for Pain. 30 Tablet 3 Active sildenafiL, pulm.hypertensi on, (REVATIO) 20 mg tabletIndicatio ns:Erectile dysfunction of organic origin Take 2-5 Tablets (40-100 mg) by mouth once daily if needed (Take 30 min - 60 min before sexual activity.). 30 Tablet 11 3 Active meloxicam (MOBIC) 7.5 mg tabletIndicatio ns:Nondisplaced fracture of second metatarsal bone, left foot, initial encounter for closed fracture Take 1-2 Tablets (7.5-15 mg) by mouth once daily. Do not take with ibuprofen or naproxen. 90 Tablet 3 Active lidocaine 4 % topical gelIndications: Nondisplaced fracture of second metatarsal bone, left foot, initial encounter for closed fracture Apply 2 grams up to twice a day as needed to affected area. 30 g 3 3 Active Active Problems Problem Noted Date Diagnosed Date Nondisplaced fracture of sec ond metatarsal bone, left foot, initial encounter for closed fracture 04/19/2023 Osteoarthritis 06/06/2018 Overview (04/07/2023): Spine Last Assessment & Plan: 61yoM with [...] in bracing. -Referral to [facility] for medial outside sales consultant brace to wear when up and ambulating -Follow up with PCP for bilateral ankle swelling -Follow up as needed for repeat injection Overview: Spine Last Assessment & Plan: 61yoM with chronic left knee pain related to degenerative medial meniscus tear. Crepitus appears to be IT band snapping. - Reviewed DJD treatment options including maintaining healthy weight vs rest vs ice vs bracing vs PT vs injections. Pain is tolerable at this time, so patient would like to hold off on repeat injection for now, but he is interested in bracing. -Referral to [facility] for medial outside sales consultant brace to wear when up and ambulating -Follow up with PCP for bilateral ankle swelling -Follow up as needed for repeat injection Overview: Spine Last Assessment & Plan: 61yoM [...] in bracing. 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 Patient will need follow up CT in 6-12 months. Overview: Overview: New pulmonary nodule noted on CT chest 07/2016. Patient will need follow up CT in 6- 12 months. New pulmonary nodule noted on CT chest 07/2016. Patient will need follow up CT in 6-12 months. Overview: Overview: New pulmonary nodule noted on CT chest 07/2016. Patient will need follow up CT in 6- 12 months. New pulmonary nodule noted on CT chest 07/2016. Patient will need follow up CT in 6-12 months. Chemical dependency 07/13/2010 Overview (04/07/2023): Pt has history of abusing narcotics , heroin, cocaine, methadone) Pt has been quite medication seeking of Benzodiazepines from [facility] psychiatry clinic. Recommend he not receive any BZDP. Psychiatry clinic will not prescribe BZDP. Overview: Started Methadone treatment 03/2016 Overview: Pt has history of abusing narcotics , heroin, cocaine, methadone) Pt has been quite medication seeking of Benzodiazepines from [facility] psychiatry clinic. Recommend he not receive any BZDP. Psychiatry clinic will not prescribe BZDP. Overview: Started Methadone treatment 03/2016 Started Methadone treatment 03/2016 Overview: Pt has history of abusing narcotics , heroin, cocaine, methadone) Pt has been quite medication seeking of Benzodiazepines from [facility] psychiatry clinic. Recommend he not receive any BZDP. Psychiatry clinic will not prescribe BZDP. Overview: Started Methadone treatment 03/2016 Started Methadone treatment 03/2016 Chronic back pain 01/30/2010 Overview (01/30/2010): Followed at [facility] [employer] database indicates multiple opioid prescribers Gallbladder polyp 05/28/2009 Anxiety 11/19/2008 Hep C w/o coma, chronic Bulging lumbar disc Overview (05/31/2011): L4-5 Resolved Problems Problem Noted Date Diagnosed Date Resolved Date Acute/Subacute midline thora cic back pain without myelopathy or radiculopathy: IMPROVING 01/15/2020 04/15/2023 Opioid dependence, uncomplicated 10/28/2019 04/15/2023 Fall at home, initial encounter 09/08/2019 04/15/2023 Compression fracture of T8 vertebra 09/08/2019 04/15/2023 Lumbar transverse process fracture 09/08/2019 04/15/2023 Closed fracture of rib of right side 09/08/2019 04/15/2023 Dermatitis 06/22/2018 04/15/2023 Opiate withdrawal 03/10/2014 04/15/2023 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 Restricted to [place] Dysthymia 04/15/2023 Immunizations Immunization Administration Dates Next Due Hepatitis A (Adult) 06/25/2020 Pneumococcal Poly,23-Valent (Pneumovax) 07/24/20 20 Td, Preservative Free (age >= 7 Years) 0 Tdap 04/30/2009 Family History Medical History Relation Name Comments Good Health Brother Don Heart Disease Father Arthritis Maternal Grandfather Arthritis Maternal Uncle Diabetes Mother Diabetes Sister 1 Denita Psychiatric illness Sister 1 Denita dementia Arthritis Sister 2 Lissette Good Health Son 2 Relation Name Status Comments Brother Don Alive Father (Age 69) heart giovanna ck Maternal Grandfather Maternal Uncle Mother (Age 81) Sister 1 Denita (Age 69) diabetes a nd dementia Sister 2 Lissette Alive Son 1 Alive Son 2 Social History Tobacco Use Types Packs/Day Years Used Date Smoking Tobacco: Some Days Cigarettes 0.5 20 Smokeless Tobacco: Never Tobacco Cessation:Ready to Q uit: No; Counseling Given: Yes Comments:pt is down to less than .5 pack a day. [id number] (Quit, then started again). Pt declines educational material. Alcohol Use Standard Drinks/Week Comments No 0 (1 standard drink = 0.6 oz pur e alcohol) PHQ-2 Answer Date Recorded PHQ-2 TOTAL SCORE 0 04/15/2023 Social Connections Answer Date Recorded Frequency of Communication with Friends and Fami ly Not on file 04/12/2024 Financial Resource Strain Answer Date R ecorded Difficulty of Paying Living Expenses 2 04/07/2023 Difficulty of Paying Living Expenses 1 04/07/2023 Food Insecurity Answer Date Recorded Worried About Running Out of Food in the Last Ye ar 1 04/07/2023 Transportation Needs Answer Date Record ed Lack of Transportation (Medical) 1 04/07/2023 Housing Stability Answer Date Recorded Unable to Pay for Housing in the Last Year 1 04/07/2023 Interpersonal Safety Answer Date Record ed Are you being hit, kicked, p ushed or yelled at (see row info)? No 10/08/2024 Interpersonal Safety Abuse 12 - 18 Not on file 10/08/2024 Interpersonal Safety Ambulatory Vulnerability No t on file 10/08/2024 Sex and Gender Information Value Date Recorded Sex Assigned at Not on file Legal Sex Male 6:07 AM COUNTY JUDGE Gender Identity Not on file Sexual Orientation Not on file Obstetrics History Last Filed Vital Signs Vital Sign Reading Time Taken Comments Blood Pressure 116/71 10/08/2024 9:11 PM COUNTY JUDGE Pulse 89 10/08/2024 9:11 PM COUNTY JUDGE Temperature 36.6 C (97.8 F) 10/08/2024 9:11 PM COUNTY JUDGE Respiratory Rate 20 10/08/2024 9:11 PM COUNTY JUDGE Oxygen Saturation 93% 10/08/2024 9:11 PM COUNTY JUDGE Inhaled Oxygen Concentration - - Weight 80.7 kg (178 lb) 10/08/2024 9:11 PM COUNTY JUDGE Height 177.8 cm (5' 10) 10/08/2024 9:11 PM COUNTY JUDGE Body Mass Index 25.54 10/08/2024 9:11 PM COUNTY JUDGE Plan of Treatment Health Maintenance Due Date Last Done Comments Hepatitis C screening for ag e 18-79 11/25/1971 Zoster (shingles) series for age 50+ (1 of 2) 11/25/2003 Hepatitis B series for 19+ ( 1 of 3 - Risk 3-dose series) 2013 RSV vaccine for adults or (1 - Risk 60-74 years 1-dose series) 2013 Lipids for age 45-75 04/21/2017 04/21/2012 (Completed outside of [facility]) Medicare Wellness for age 65+ 2018 Pneumococcal series for age 50+ (2 of 2 - PCV) 07/24/2021 07/24/2020 Fecal testing non-DNA (FIT,FOBT,iFOBT) for age 45-75 07/15/2022 07/15/2021 BMI (ht and wt on same day) for age 18+ 04/15/2024 04/15/2023, 11/23/2019, 10/26/2019, Additional history exists Depression screening for age 12+ 04/19/2024 04/19/2023, 04/19/2023, 04/15/2023 COVID-19 vaccine series ( season) 2024 Influenza Vaccine (Season Ended) 2025 Tetanus booster 07/24/2030 07/24/2020, 04/30/2009 Tdap Completed 04/30/2009 Medical Devices Implanted Type Area Logistics Coordinator Device Identifier Shelf Expiration Date Model / Serial / Lot Shell Hip Od58mm 3 Hole R3 Pe - [id number] Implanted:Qty: 1 on 07/23/2014 at [facility] Right: Hip [employer] [id number] / / [id number] Liner Hip Id40 Od58mm 20deg R3 Xlpe - [id number] Implanted:Qty: 1 on 07/23/2014 at [facility] Right: Hip [employer] [id number]# / / [id number] Stem Hip [id number] Synergy Std Off Titnm Pors - [id number] Implanted:Qty: 1 on 07/23/2014 at [facility] Right: Hip [employer] [id number]# / / [id number] Head Modular 40mm Oxin - [id number] Implanted:Qty: 1 on 07/23/2014 at [facility] Right: Hip [employer] [id number]# / / [id number] Sleeve Hip +0 Neck Shrt Mod Titnm Oxin - [id number] Implanted:Qty: 1 on 07/23/2014 at [facility] Right: Hip [employer] [id number]# / / [id number] Procedures Procedure Name Priority Date/Time Associated Diagnosis Comments OCCULT BLOOD IFOBT STOOL Routine 07/15/2021 1:47 PM CDT Screening for colorectal cancer from Last 3 Months or Most Recently Relevant to Health Maintenance Results * OCCULT BLOOD IFOBT STOOL (07/15/2021 1:47 PM CDT) STOOL BLOOD ,IFOBT Negative Negative 07/24/2021 2:59 PM COUNTY JUDGE [facility] Stool STOOL SPECIMEN / Unknown Non-Blood / Unknown 07/15/2021 1:47 PM CDT 07/23/2021 1:47 PM COUNTY JUDGE Kassandra Worthy MD LABORATORY Final Result [facility] [address] [place] [address], from Last 3 Months or Most Recently Relevant to Health Maintenance Insurance MEDICARE PART A HB ONLY [employer] Advance Directives * Full Code (Latest Code Status on File) Date Activated Date Inactivated Comments 09/08/2019 6:15 PM 09/09/2019 8:07 PM * Full Code Date Activated Date Inactivated Comments 07/23/2014 1:52 PM 07/26/2014 4:05 PM * Full Code Date Activated Date Inactivated Comments 07/23/2014 6:46 AM 07/23/2014 1:52 PM Care Teams Director Check Relationship Specialty Start Date End Date Kassandra Worthy MD [address] [place] [id number] PCP - General Internal Medicine 09/15/19
--- OUTSIDE RECORDS SUMMARY | 2025-02-08 19:38 | XMS_ITS | Encounter Summary ---
Author Organization [facility] Address [address] [place] [address] Care Team Providers Care Mammalogist Name Role Phone Nery Bernstein DO Primary Care Provider Gunner Rivera MD Primary Care Provider Gunner Rivera MD Unavailable [phone] Rosie Noonan DO Primary Care Provider [phone] Rosie Noonan DO Unavailable [phone] Nery Bernstein DO Unavailable [phone] Rosie Noonan DO Unavailable [phone] Encounter Details Date Type Department Care Team (Late st Contact Info) Description 10/31/2018 Records - [facility] CONVERSION Scan, Non-Provider Social History Tobacco Use Types Packs/Day Years Used Date Smoking Tobacco: Every Day Cigarettes Smokeless Tobacco: Never Alcohol Use Standard Drinks/Week Comments No 0 (1 standard drink = 0.6 oz pur e alcohol) seldom PHQ-2 Answer Date Recorded PHQ-2 Score 0 10/25/2018 Sex and Gender Information Value Date Recorded Sex Assigned at Not on file 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 Gender Identity Not on file Sexual Orientation Not on file documented as of this encounter Plan of Treatment Not on file documented as of this encounter Visit Diagnoses Not on filedocumented in this encounter Care Teams Mammalogist Relationship Specialty Start Date End Date Nery Bernstein DO [address], [address] [place] [address] PCP - General Student in organized health care education/training program 10/25/18 12/13/18 Gunner Rivera MD [address], [facility] [address] [place] [address] PCP - General Family Practice 12/14/18 10/15/20 Rosie Noonan DO [address] [address] PCP - General Family Medicine 10/16/20 Gunner Rivera MD [address] [place] [address] Assigned PCP 01/31/20 10/18/20 Rosie Noonan DO [address] [address] Assigned PCP 11/02/20 12/20/20 Nery Bernstein DO [address] [address] Assigned PCP 10/19/20 11/01/20 Rosie Noonan DO [address] [address] Assigned PCP 02/15/21 10/31/21 documented as of this encounter
--- OUTSIDE RECORDS SUMMARY | 2025-02-08 19:38 | XMS_ITS | Encounter Summary ---
Author Organization [facility] Address [address] [place] [address] Care Team Providers Care Line Manager Name Role Phone Vandana Munoz MD Primary Care Provider U Elisa Laguerre DO Primary Care Provider Unavail able Nery Bernstein DO Primary Care Provider Gunner Rivera MD Primary Care Provider Gunner Rivera MD Unavailable [phone] Rosie Noonan DO Primary Care Provider [phone] Rosie Noonan DO Unavailable [phone] Nery Bernstein DO Unavailable [phone] Rosie Noonan DO Unavailable [phone] Encounter Details Date Type Department Care Team (Late st Contact Info) Description 08/31/2017 Records - [facility] CONVERSION Scan, Non-Provider Social History Tobacco Use Types Packs/Day Years Used Date Smoking Tobacco: Every Day Cigarettes Smokeless Tobacco: Never Alcohol Use Standard Drinks/Week Comments No 0 (1 standard drink = 0.6 oz pur e alcohol) seldom Sex and Gender Information Value Date Recorded Sex Assigned at Not on file 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 Gender Identity Not on file Sexual Orientation Not on file documented as of this encounter Plan of Treatment Not on file documented as of this encounter Visit Diagnoses Not on filedocumented in this encounter Care Teams Line Manager Relationship Specialty Start Date End Date Vandana Munoz MD PCP - General Student in organized health care education/training program 03/11/16 05/02/18 Elisa Benites DO PCP - General Student in organized health care education/training program 05/03/18 10/24/18 Nery Bernstein DO [address], [address] [place] [address] PCP - General Student in organized health care education/training program 10/25/18 12/13/18 Gunner Rivera MD [address], [address] [place] [address] PCP - General Family Practice 12/14/18 10/15/20 Rosie Noonan DO [address] [address] PCP - General Family Medicine 10/16/20 Gunner Rivera MD [place] [id number] [address] Assigned PCP 01/31/20 10/18/20 Rosie Noonan DO [address] [place] [address] Assigned PCP 11/02/20 12/20/20 Nery Bernstein DO [address] [address] Assigned PCP 10/19/20 11/01/20 Rosie Noonan DO [address] [place] [address] Assigned PCP 02/15/21 10/31/21 documented as of this encounter
--- OUTSIDE RECORDS SUMMARY | 2025-02-08 19:38 | XMS_ITS | Encounter Summary ---
Author Organization [facility] Address [address] [place] [address] Care Team Providers Care Steeplechase Jockey Name Role Phone Vandana Munoz MD Primary Care Provider U Elisa Laguerre DO Primary Care Provider Unavail able Nery Bernstein DO Primary Care Provider Gunner Rivera MD Primary Care Provider Gunner Rivera MD Unavailable [phone] Rosie Noonan DO Primary Care Provider Rosie Noonan DO Unavailable [phone] Nery Bernstein DO Unavailable [phone] Rosie Noonan DO Unavailable [phone] Encounter Details Date Type Department Care Team (Late st Contact Info) Description 03/10/2018 Records - [facility] CONVERSION Scan, Non-Provider Social History Tobacco Use Types Packs/Day Years Used Date Smoking Tobacco: Every Day Cigarettes Smokeless Tobacco: Never Alcohol Use Standard Drinks/Week Comments No 0 (1 standard drink = 0.6 oz pur e alcohol) seldom Sex and Gender Information Value Date Recorded Sex Assigned at Not on file 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 Gender Identity Not on file Sexual Orientation Not on file documented as of this encounter Plan of Treatment Not on file documented as of this encounter Visit Diagnoses Not on filedocumented in this encounter Care Teams Steeplechase Jockey Relationship Specialty Start Date End Date Vandana Munoz MD PCP - General Student in organized health care education/training program 03/11/16 05/02/18 Elisa Benites DO PCP - General Student in organized health care education/training program 05/03/18 10/24/18 Nery Bernstein DO [address], [address] [place] [address] PCP - General Student in organized health care education/training program 10/25/18 12/13/18 Gunner Rivera MD [address], [address] [place] [address] PCP - General Family Practice 12/14/18 10/15/20 Rosie Noonan DO [address] [address] PCP - General Family Medicine 10/16/20 Gunner Rivera MD [place] [id number] [address] Assigned PCP 01/31/20 10/18/20 Rosie Noonan DO [address] [place] [address] Assigned PCP 11/02/20 12/20/20 Nery Bernstein DO [address] [address] Assigned PCP 10/19/20 11/01/20 Rosie Noonan DO [address] [place] [address] Assigned PCP 02/15/21 10/31/21 documented as of this encounter
--- OUTSIDE RECORDS SUMMARY | 2025-02-08 19:38 | XMS_ITS | Encounter Summary ---
Author Organization [facility] Address [facility] [place] [address] Care Team Providers Care Food Analyst Name Role Phone Vandana Munoz MD Primary Care Provider U Elisa Laguerre DO Primary Care Provider Unavail able Nery Bernstein DO Primary Care Provider Gunner Rivera MD Primary Care Provider Gunner Rivera MD Unavailable [phone] Rosie Noonan DO Primary Care Provider [phone] Rosie Noonan DO Unavailable [phone] Nery Bernstein DO Unavailable [phone] Rosie Noonan DO Unavailable [phone] Reason for Visit * Reason Comments Forms [employer] ( Ente ral Nutrition Prescription) Encounter Details Date Type Department Care Team (Late st Contact Info) Description 04/27/2018 Documentation Only [facility]. [address] [place] [address], [address] [place] [address] Vandana Munoz MD XXX JANUARY 2021 XXX Forms ([employer] ( Enteral Nutrition P... 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 Robbie is a 62 year old male Form received via: Fax Form now resides in: Provider Ready Shayy Lara CMA documented in this encounter Plan of Treatment Not on file documented as of this encounter Visit Diagnoses Not on filedocumented in this encounter Care Teams Food Analyst Relationship Specialty Start Date End Date Vandana Munoz MD PCP - General Student in organized health care education/training program 03/11/16 05/02/18 Elisa Benites DO PCP - General Student in organized health care education/training program 05/03/18 10/24/18 Nery Bernstein DO [address], [address] [address] PCP - General Student in organized health care education/training program 10/25/18 12/13/18 Gunner Rivera MD [address], [address] [address] PCP - General Family Practice 12/14/18 10/15/20 Rosie Noonan DO [address] [address] PCP - General Family Medicine 10/16/20 Gunner Rivera MD [place] [address] [place] [address] Assigned PCP 01/31/20 10/18/20 Rosie Noonan DO [address] [address] Assigned PCP 11/02/20 12/20/[address] [facility] [address] [place] [address] Assigned PCP 10/19/20 11/01/20 Rosie Noonan DO [address] [address] Assigned PCP 02/15/21 10/31/21 documented as of this encounter
[2025-02-08] MEDS: fentaNYL 100 MCG/2 ML inj 50 MCG IVP (21:33)
--- NOTE | 2025-02-08 21:40 | ED.NURSE ---
Report to Frederick, Zyglo Technician. Patient left department via [facility] en route to [facility] [place] belongings.
--- NOTE | 2025-02-08 21:55 | ED.NURSE ---
Patient report to accepting [facility] RN via telephone.
== END 2025-02-08 21:40 | disposition other institution (70) ==
PROVIDERS: Emergency Provider Student in an Organized Health Care Education/Training Program
DX: S12.200A Unspecified displaced fracture of third cervical vertebra, initial encounter for closed fracture (principal); S12.400A Unspecified displaced fracture of fifth cervical vertebra, initial encounter for closed fracture; S12.500A Unspecified displaced fracture of sixth cervical vertebra, initial encounter for closed fracture; S22.41XA Multiple fractures of ribs, right side, initial encounter for closed fracture; S27.0XXA Traumatic pneumothorax, initial encounter; V49.88XA Car occupant (driver) (passenger) injured in other specified transport accidents, initial encounter
CPT/HCPCS: 36415; 70450; 71260; 72125; 74177; 80048; 80306; 82077; 82565; 83735; 84484; 85025; 93005; 99285; 99291; G0390; J3010; Q9967

== ENCOUNTER 2025-02-08 21:36 | Outpatient (CLI) | payer OTHER, MEDICARE, SELFPAY | END 2025-02-08 21:37 | disposition home or self-care (01) | PROVIDERS: Visit Provider Family Medicine | DX: S12.500A Unspecified displaced fracture of sixth cervical vertebra, initial encounter for closed fracture (principal); S12.400A Unspecified displaced fracture of fifth cervical vertebra, initial encounter for closed fracture; S12.200A Unspecified displaced fracture of third cervical vertebra, initial encounter for closed fracture; S22.49XA Multiple fractures of ribs, unspecified side, initial encounter for closed fracture | CPT/HCPCS: A0425; A0427 ==